=== PATIENT | female | born 1970 | race Caucasian/White ===

== ENCOUNTER 2017-05-07 14:10 | Emergency (ER) | payer BC ==
[2017-05-07] MEDS ORDERED: Sodium Chloride 0.9% 10 ML Syringe FLUSH PRN (14:43)
[2017-05-07] MEDS ORDERED: Sodium Chloride 0.9% 1,000 ML IV ONE (14:45)
[2017-05-07 15:51] LABS: CHLORIDE,CL 104 mmol/L (98-107); SODIUM,NA 141 mmol/L (136-145)
[2017-05-07 17:06] VITALS: BP 121/79
--- NOTE | 2017-05-08 08:40 | ER ---
Date of Service: 05/07/2017 SUBJECTIVE: The patient presents to the emergency room with history of fever, chills, and diaphoresis. The patient states that she has been experiencing symptoms of fever, chills, fatigue, and weakness for several weeks and has been doctoring at [facility] for this. She is working on getting a referral to [facility] as they were having difficulties this finding out what is causing her symptoms. The patient states that she was extremely lightheaded today and did go to the clinic and was found to have a heart rate of approximately 127. An EKG was performed and she was found to be in a sinus rhythm without any acute ST or T- wave changes. The patient subsequently came to the emergency room afterward for further evaluation and treatment. Apparently, no labs were done during her stay in the clinic. PAST MEDICAL HISTORY: 1. . 2. Psoriatic arthritis. 3. Depression. 4. Anxiety. 5. Sleep disorder. 6. GERD. 7. Asthma. 8. Tobacco abuse disorder. MEDICATIONS: 1. Omeprazole. 2. Singulair. 3. Levothyroxine. 4. Eszopiclone. 5. Cymbalta. 6. Cyclobenzaprine. 7. Celebrex. ALLERGIES: 1. Bee pollen. 2. Hydrocodone. 3. Latex. 4. Azithromycin. 5. Gabapentin. 6. Sulfasalazine. 7. Contrast dye. REVIEW OF SYSTEMS: General: Positive for fever and chills. Fatigue and weakness. HEENT: No sore throat, rhinorrhea, or congestion. Respiratory: No shortness of breath. Cardiac: Denies any substernal chest pain. No jaw, arm, neck, or back pain. GI: No nausea, vomiting, or diarrhea. No melena, hematochezia, or hematemesis. : Denies any dysuria. Musculoskeletal: No myalgias or arthralgias. Neurologic: No blackouts or fainting. She does complain of being lightheaded. PHYSICAL EXAMINATION: General: This is a 46-year-old female patient, who is in mild amount of distress. Vital Signs: Heart rate 104 while supine, blood pressure is 121/79, respiratory rate is 22, O2 saturations 98%, temperature is 36.5. Orthostatic vitals did reveal approximately 15-point increase in her heart rate while standing and a 13- point drop in her blood pressure. HEENT: Mouth; oral mucosa is dry. Lungs: Clear to auscultation. Heart: Regular rate and rhythm. Abdomen: Soft and nontender. There is no hepatosplenomegaly or masses noted. Extremities: Without edema. Neurologic: The patient is alert and oriented. Answers all questions appropriately. Her speech is fluent. Her gait is within normal limits. LABORATORY DATA: WBC is 9.9, hemoglobin is 12.9, platelets are 290. Coags: PT is 9.5, INR is 0.9. Chemistry: Sodium is 141, potassium is 3.8, chloride is 104, bicarb is 29, BUN is 13, creatinine is 0.7. GFR is greater than 60. Glucose is 88, lactic acid is 1.3, calcium is 8.9, corrected calcium is 9.3, phos is 4.8, mag is 2.0, total bilirubin is 0.2, AST is 9, ALT is 23, alkaline phosphatase is 70, CK is 33, C-reactive protein is less than 0.2, total protein is 6.8, albumin is 3.5, TSH is 2.783. Urinalysis was obtained. After a liter of fluid, her specific gravity of her urine was 1.015, pH was 7.0, negative for protein, glucose, and ketones. She did have a trace of occult blood, negative nitrites and bilirubin. Negative leukocyte esterase. No bacteria was seen on her micro. PA and lateral chest x-ray was obtained. There was no evidence of any acute infiltrate. EMERGENCY ROOM COURSE: IV access was established. She was given a liter of normal saline IV. Did report feeling quite a bit improved and wished to be discharged. ASSESSMENT: Dehydration secondary to insensible water loss from sweats. PLAN: The patient will be discharged. Again, she has had quite an extensive workup and is planning on seeing and has seen an die forger. They are wondering if possibly this could be a symptom of premenopause. Again, she is planning to follow up with [facility] if she has had issues with this in the past. She is also being worked up for adrenal insufficiency by Endocrinology as well. We will have her follow up with her primary care provider and with Endocrinology in the [facility] or at [facility]. Return in the emergency room if she develops any chest pain, shortness of breath, abdominal pain, or other worrisome signs or symptoms. All questions were answered. MWK: 05/07/2017 17:39:24 MODL: 05/08/2017 00:25:26 /[id number]
== END 2017-05-07 16:20 | disposition home or self-care (01) ==
LOC: VM.ED 14:10
DX: E86.0 Dehydration (principal); F32.9 Major depressive disorder, single episode, unspecified; F41.9 Anxiety disorder, unspecified; K21.9 Gastro-esophageal reflux disease without esophagitis; J45.909 Unspecified asthma, uncomplicated; Z88.1 Allergy status to other antibiotic agents; Z88.5 Allergy status to narcotic agent; Z88.8 Allergy status to other drugs, medicaments and biological substances; Z91.040 Latex allergy status; Z91.018 Allergy to other foods
CPT/HCPCS: 36415; 71020; 80053; 81001; 82550; 83605; 83735; 84100; 84443; 85025; 85610; 86140; 87040; 96360; 99284; J7030; 86788

== ENCOUNTER 2020-05-14 14:11 | Emergency (ER) | payer BC ==
[2020-05-14] MEDS ORDERED: HYDROmorphone 1 MG/ML Syringe IM ONE (14:18)
[2020-05-14 14:37] VITALS: BP 124/70; PULSE 79
[2020-05-14] MEDS ORDERED: HYDROmorphone 1 MG/ML Syringe IVPUSH ONE ×2 (14:41→15:21)
--- NOTE | 2020-05-14 14:50 | CR ---
[id number] RAD/RAD Ankle Left 3V Min EXAM: RAD Ankle Left 3V Min INDICATION: TWISTED ANKLE, FELT POP. COMPARISON: None. DISCUSSION: Acute obliquely orientated slightly displaced fracture of the distal fibula, involving the lateral malleolus. Fracture line extends into the ankle mortise. No other fractures or evidence of ankle mortise instability. Lateral view demonstrates enthesopathy of the plantar fascia and Achilles tendon at their calcaneal attachments. IMPRESSION: As above. Jesse Barajas MD 05/14/20 [id number] Thank you for allowing us to participate in the care of your patient.
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
== END 2020-05-14 16:00 | disposition home or self-care (01) ==
LOC: VM.ED 14:11
DX: S82.62XA Displaced fracture of lateral malleolus of left fibula, initial encounter for closed fracture (principal); K21.9 Gastro-esophageal reflux disease without esophagitis; M19.90 Unspecified osteoarthritis, unspecified site; E03.9 Hypothyroidism, unspecified; E11.9 Type 2 diabetes mellitus without complications; E66.9 Obesity, unspecified; F41.9 Anxiety disorder, unspecified; F32.9 Major depressive disorder, single episode, unspecified; Z91.030 Bee allergy status; Z91.018 Allergy to other foods; Z91.040 Latex allergy status; Z88.8 Allergy status to other drugs, medicaments and biological substances; Z88.2 Allergy status to sulfonamides; Z91.041 Radiographic dye allergy status; Z88.1 Allergy status to other antibiotic agents; Z79.899 Other long term (current) drug therapy; Z68.33 Body mass index [BMI] 33.0-33.9, adult; X50.1XXA Overexertion from prolonged static or awkward postures, initial encounter
CPT/HCPCS: 73610-LT; 96374; 96376; 99283-25; 99284; J1170